=== PATIENT | female | born 1980 | race Caucasian/White ===

== ENCOUNTER 2016-06-11 14:48 | Observation (INO) | payer OTHER ==
[~2016-06-11] VITALS: Ht 162.6 cm; Wt 145.1 kg
[2016-06-11 15:59] LABS: HEMOGLOBIN 15.4 gm/dl (12.3-15.3); RED BLOOD COUNT 5.68 M/UL (4.00-5.10); WHITE BLOOD COUNT 10.5 K/UL (4.5-11.0)
[2016-06-11 16:20] LABS: BUN/CREATININE RATIO 18 (0-10)
--- NOTE | 2016-06-12 00:34 | NUR ---
PT ARRIVED TO OB FLOOR 06-11-16 20:05 W/ HEAVY VAG. BLEEDING. ASSISTED TO CHANGE DARRYL PAD (FULLY SATURATED AND HEAVY WITH BLOOD); CHANGED CHUX. WILL MONITOR BLEEDING. AT 21:30, CALLED DR. Cha LI TO UPDATE AND INFORM OF ELEVATED ACCUCHECK BLOOD GLUCOSE OF 251, AND THAT PT STATES SHE IS SUPOSSED TO HAVE APPT W/ PVT MD REGARDING ELEVATED BLOOD SUGAR LEVELS. MD STATES TO ORDER CC3 DIET AND NO COVERAGE AT THIS TIME.
--- NOTE | 2016-06-12 01:57 | NUR ---
1:55 AM: PT SLEEPING LIGHTLY. AWOKE EASILY. SHE STATES SHE JUST USED THE BATHROOM AND VAG. BLEEDING HAS DECREASED ALOT THROUGH THE EVENING. LAST PAD CHANGED WITH ABOUT 1/4 OF PAD WITH BLOOD ON IT.
[2016-06-12 03:57] LABS: RED BLOOD COUNT 4.52 M/UL (4.00-5.10); WHITE BLOOD COUNT 9.2 K/UL (4.5-11.0)
[2016-06-12 04:04] LABS: BUN/CREATININE RATIO 18 (0-10)
--- NOTE | 2016-06-12 07:27 | NUR ---
7AM AM SHIFT CHANGE REPORT GIVEN TO ONCOMING POST NURSE. PT'S VAG. BLEEDING IMPROVED THROUGH THE NIGHT.
[2016-06-12] MEDS ORDERED: PROVERA 10 MG T10 MG PO (09:57)
[2016-06-12] MEDS ORDERED: GLUCOPHAGE500 MG PO (09:59)
[2016-06-12] MEDS ORDERED: LABETALOL HCL300 MG PO (10:00)
[2016-07-01] MEDS ORDERED: MACROBID 100 M100 M1 PO (11:01)
[2016-07-01] MEDS ORDERED: NORCO 5-325 TA1 EACH PO (11:01)
[2016-07-01] MEDS ORDERED: IBUPROFEN600 MG PO (11:01)
[2016-11-16] MEDS ORDERED: VITAMIN D35000 UNIT PO (06:32)
[2016-11-16] MEDS ORDERED: HYDROCHLOROTHIA25 MG PO (06:32)
[2016-11-16] MEDS ORDERED: FEROSUL325 MG PO (06:32)
[2016-11-16] MEDS ORDERED: QUDEXY XR50 MG PO (06:33)
[2016-11-16] MEDS ORDERED: VITAMIN B12-FO1 EACH PO (06:33)
[2016-11-16] MEDS ORDERED: GLUCOTROL XL10 MG PO (06:34)
[2016-11-17] MEDS ORDERED: NAPROSYN500 MG PO (11:42)
[2016-11-17] MEDS ORDERED: NORCO 5-325 TA1 EACH PO (11:43)
[2016-11-17] MEDS ORDERED: GLUCOPHAGE1000 MG PO (12:32)
== END 2016-06-12 10:45 | disposition home or self-care (01) ==
LOC: ER1 14:48 → ZEROF 17:22 → OB 22:22
PROVIDERS: Physician Assistant Medical; ADMIT Obstetrics & Gynecology
DX: N92.0 Excessive and frequent menstruation with regular cycle (principal); E66.01 Morbid (severe) obesity due to excess calories; E11.9 Type 2 diabetes mellitus without complications; I10 Essential (primary) hypertension; Z79.899 Other long term (current) drug therapy
CPT/HCPCS: 36415; 80053; 81001; 82150; 82962; 83036; 83690; 84703; 85025; 96360; 96361; 96374; 96375; 99284; G0378; J2270; J2405; J7030

== ENCOUNTER 2016-06-26 11:17 | Emergency (ER) | payer OTHER ==
[~2016-06-26 11:17] MED LIST: GLUCOPHAGE500 MG PO; LABETALOL HCL300 MG PO; PROVERA 10 MG T10 MG PO
[2016-06-26 12:23] LABS: HEMOGLOBIN 13.4 gm/dl (12.3-15.3); RED BLOOD COUNT 4.98 M/UL (4.00-5.10); WHITE BLOOD COUNT 7.8 K/UL (4.5-11.0)
[2016-06-26 12:48] LABS: BUN/CREATININE RATIO 16 (0-10)
[2016-07-01] MEDS ORDERED: MACROBID 100 M100 M1 PO (11:01)
[2016-07-01] MEDS ORDERED: NORCO 5-325 TA1 EACH PO (11:01)
[2016-07-01] MEDS ORDERED: IBUPROFEN600 MG PO (11:01)
[2016-11-16] MEDS ORDERED: FEROSUL325 MG PO (06:32)
[2016-11-16] MEDS ORDERED: HYDROCHLOROTHIA25 MG PO (06:32)
[2016-11-16] MEDS ORDERED: VITAMIN D35000 UNIT PO (06:32)
[2016-11-16] MEDS ORDERED: QUDEXY XR50 MG PO (06:33)
[2016-11-16] MEDS ORDERED: VITAMIN B12-FO1 EACH PO (06:33)
[2016-11-16] MEDS ORDERED: GLUCOTROL XL10 MG PO (06:34)
[2016-11-17] MEDS ORDERED: NAPROSYN500 MG PO (11:42)
[2016-11-17] MEDS ORDERED: NORCO 5-325 TA1 EACH PO (11:43)
[2016-11-17] MEDS ORDERED: GLUCOPHAGE1000 MG PO (12:32)
== END 2016-06-26 13:50 | disposition home or self-care (01) ==
LOC: ER1 11:17
PROVIDERS: Emergency Medicine
DX: N93.9 Abnormal uterine and vaginal bleeding, unspecified (principal); E11.9 Type 2 diabetes mellitus without complications; I10 Essential (primary) hypertension; Z79.818 Long term (current) use of other agents affecting estrogen receptors and estrogen levels
CPT/HCPCS: 36415; 80053; 84703; 85025; 96360; 96361; 99284; J7030

== ENCOUNTER → 2016-06-30 | Outpatient (CLI) | payer OTHER ==
[~2016-06-30] MED LIST changes: +FEROSUL325 MG PO; +GLUCOPHAGE1000 MG PO; +GLUCOTROL XL10 MG PO; +HYDROCHLOROTHIA25 MG PO; +IBUPROFEN600 MG PO; +MACROBID 100 M100 M1 PO; +NAPROSYN500 MG PO; +NORCO 5-325 TA1 EACH PO; +QUDEXY XR50 MG PO; +VITAMIN B12-FO1 EACH PO; +VITAMIN D35000 UNIT PO
== END ==
LOC: OPSV2 08:24
DX: Z01.812 Encounter for preprocedural laboratory examination (principal); N93.8 Other specified abnormal uterine and vaginal bleeding; Z88.0 Allergy status to penicillin
CPT/HCPCS: 81001; 84703; 87077; 87086; 87186

== ENCOUNTER → 2016-07-01 | Day surgery (SDC) | payer OTHER | END | disposition home or self-care (01) | LOC: OR 06:39 | PROVIDERS: Obstetrics & Gynecology | PROC: 0UDB8ZX Extraction of Endometrium, Via Natural or Artificial Opening Endoscopic, Diagnostic (ICD-10-PCS; principal; 2016-07-01 08:55) | DX: N92.0 Excessive and frequent menstruation with regular cycle (principal); N93.0 Postcoital and contact bleeding; N93.8 Other specified abnormal uterine and vaginal bleeding; E66.01 Morbid (severe) obesity due to excess calories; E11.65 Type 2 diabetes mellitus with hyperglycemia; I10 Essential (primary) hypertension; Z68.43 Body mass index [BMI] 50.0-59.9, adult; Z88.0 Allergy status to penicillin; Z87.891 Personal history of nicotine dependence; Z79.84 Long term (current) use of oral hypoglycemic drugs; Z79.899 Other long term (current) drug therapy | CPT/HCPCS: 82962; J1815; J2210; J2250; J2405; J2795; J3010; J7120 ==

== ENCOUNTER 2020-10-17 19:37 | Emergency (ER) | payer OTHER ==
[~2020-10-17 19:37] MED LIST changes: +AZITHROMYCIN250 MG PO; +AZITHROMYCIN500 MG PO; +BENADRYL 25MG C25 MG PO; +CETAPHIL CREAM454 GM TP; +FELDENE10 MG PO; +FIORINAL 50-321 EACH PO; +HYDROCORTISONE114 GM TP; +HYDROCORTISONE30 G5 EXT; +MACROBID 100 M100 MG PO; +MACRODANTIN100 MG PO; +POLYTRIM EYE DR10 ML OP; +PREDNISONE 50 M50 MG PO; +PYRIDIUM200 MG PO; +TRAMADOL HCL50 MG PO; +ZANTAC150 MG PO; +ZITHROMAX250 MG PO; +ZOFRAN 4 MG TAB4 MG PO; +ZOFRAN ODT 4 MG4 MG SL
[2020-10-17 20:30] LABS: HEMOGLOBIN 11.8 gm/dl (12.3-15.3); RED BLOOD COUNT 4.09 M/UL (4.00-5.10); WHITE BLOOD COUNT 7.1 K/UL (4.5-11.0)
[2020-10-17 20:49] LABS: BUN/CREATININE RATIO 15 (0-10)
[2020-10-17] MEDS ORDERED: OMNICEF 300 MG300 MG PO (21:42)
== END 2020-10-17 21:58 | disposition home or self-care (01) ==
LOC: ER1 19:37
PROVIDERS: Emergency Medicine
DX: J02.0 Streptococcal pharyngitis (principal); E11.9 Type 2 diabetes mellitus without complications; I10 Essential (primary) hypertension; Z88.0 Allergy status to penicillin; Z20.822 Contact with and (suspected) exposure to COVID-19
CPT/HCPCS: 0240U; 80053; 81001; 82962; 83690; 84703; 85025; 87081; 87880; 99284

== ENCOUNTER 2021-02-04 12:28 | Emergency (ER) | payer OTHER ==
[~2021-02-04 12:28] MED LIST changes: +OMNICEF 300 MG300 MG PO
[2021-02-04 13:26] LABS: HEMOGLOBIN 14.3 gm/dl (12.3-15.3); RED BLOOD COUNT 5.01 M/UL (4.00-5.10)
[2021-02-04 13:52] LABS: BUN/CREATININE RATIO 24 (0-10)
[2021-02-04] MEDS ORDERED: ZOFRAN4 MG PO (14:04)
[2021-02-04] MEDS ORDERED: CYCLOBENZAPRINE10 MG PO (14:04)
[2021-02-04] MEDS ORDERED: MACROBID 100 M100 MG PO (14:04)
== END 2021-02-04 14:17 | disposition home or self-care (01) ==
LOC: ER1 12:28
PROVIDERS: Physician Assistant
DX: N39.0 Urinary tract infection, site not specified (principal); E11.9 Type 2 diabetes mellitus without complications; I10 Essential (primary) hypertension; E78.5 Hyperlipidemia, unspecified; Z88.0 Allergy status to penicillin
CPT/HCPCS: 80053; 81001; 85025; 96374; 99284; J1885

== ENCOUNTER 2021-04-08 14:32 | Emergency (ER) | payer OTHER ==
[~2021-04-08] VITALS: Ht 162.6 cm; Wt 131.5 kg
[~2021-04-08 14:32] MED LIST changes: +CYCLOBENZAPRINE10 MG PO; +ZOFRAN4 MG PO
== END 2021-04-08 19:32 | disposition home or self-care (01) ==
LOC: ER1 14:32
DX: U07.1 COVID-19 (principal); Z23 Encounter for immunization; E78.5 Hyperlipidemia, unspecified; I10 Essential (primary) hypertension; E11.9 Type 2 diabetes mellitus without complications; Z88.0 Allergy status to penicillin
CPT/HCPCS: 99284; M0245; U0002